=== PATIENT | male | born 1960 | race Hispanic/Latino ===

== ENCOUNTER 2020-02-29 17:54 | Emergency (ER) | payer SELFPAY ==
[~2020-02-29 17:54] MED LIST: Iopamidol-370 76% 500 ML 1 ML ONE
--- NOTE | 2020-02-29 18:07 | CT ---
CT Brain WO Con: 02/29/2020 12:00 AM CLINICAL HISTORY: Level 1 stroke; slurred speech with left-sided weakness. IMAGING TECHNIQUE: Multiple CT images were obtained of the brain without IV contrast. COMPARISON: None. FINDINGS: BRAIN: Evidence of infarct: None. Evidence of cranial hemorrhage: None. Evidence of midline shift: Third ventricle and septum pellucidum are midline. Ventricles: Normal. No hydrocephalus. SKULL: There is a defect involving the left medial orbital wall which may be related to congenital d ehiscence or remote trauma VISUALIZED PARANASAL SINUSES: Clear. MASTOID AIR CELLS: Clear. EXTRACRANIAL SOFT TISSUES: Normal. IMPRESSION: No acute intracranial abnormality. Findings were called to Dr. Pollock at 6:05 PM on 02/29/2020.
[2020-02-29 18:24] LABS: #Basophils 0.1 thou/uL (0.0-0.2); #Eosinphils 0.1 thou/uL (0.0-0.7); #Lymphocytes 1.6 thou/uL (1.20-3.40); #Monocytes 0.6 thou/uL (0.11-0.59); #Neutrophils 4.3 thou/uL (1.40-6.50); %Basophils 0.9 % (0.0-1.0); %Eosinophils 1.2 % (0.0-10.0); %Lymphocytes 24.2 % (21.0-51.0); %Monocytes 8.6 % (0.0-10.0); %Neutrophils 65.2 % (42.0-75.0); Mean Corpuscular HGB CONC 30.3 g/dL (32.0-36.0); Mean Corpuscular Hemoglobin 21.2 pg (27.0-31.0); Mean Platelet Volume 6.1 fL (7.4-10.4); Platelet Count 96 thou/uL (130-400); RBC Distribution Width 16.8 % (11.5-14.5); Red Blood Cell (RBC) Count 4.26 mill/uL (4.70-6.10); White Blood Cell (WBC) Count 6.5 thou/uL (4.8-10.8)
[2020-02-29 18:25] LABS: PTT 29.6 sec (22.9-36.1); Prothrombin Time 15.4 sec (12.0-14.7)
[2020-02-29 18:27] LABS: INR-International Normal Ratio 1.2
[2020-02-29 18:33] LABS: ALT (SGPT) 18 U/L (8-55); AST (SGOT) 31 U/L (5-34); Alkaline Phosphatase 167 U/L (40-110); Anion Gap 14 mmol/L (10-20); BUN (Urea Nitrogen) 8 mg/dL (8.4-25.7); Bilirubin, Total 1.1 mg/dL (0.2-1.2); CK (CPK) 194 U/L (30-200); Calc. Creatinine Clearance 0 mL/min (70-130); Calcium 8.6 mg/dL (7.8-10.44); Carbon Dioxide 22 mmol/L (23-31); Chloride 106 mmol/L (98-107); Estimated GFR-MDRD 90; Globulin 4.1 g/dL (2.4-3.5); Glucose 119 mg/dL (80-115); Lipase 47 U/L (8-78); Protein, Total 8.1 g/dL (5.8-8.1); Sodium 139 mmol/L (136-145)
--- NOTE | 2020-02-29 18:33 | CT ---
EXAM: CT angiogram head and neck with IV contrast and 3-D reconstructions PROVIDED CLINICAL HISTORY: Patient unable to move right hand or arm. Slurred speech. Level 1 stroke. Stumbling. COMPARISON: None FINDINGS: Vascular calcifications are seen in the aortic arch. There is a common origin of the innominate arter y and left common carotid artery which are patent. The right subclavian artery is patent. A portion of the left subclavian artery is obscured due to dense contrast in venous structures. The bilateral common carotid arteries are patent. Vascular calcifications are seen at the carotid art fabian bifurcations greater on the left with mild degree of narrowing involving the origin of the left internal carotid artery, but the degree of narrowing is less than 50%. The right internal carotid art fabian is patent. The right middle cerebral artery is patent. There is an abrupt occlusion involving the distal M1 segm ent left middle cerebral artery with focal calcification seen in this region. This is thought to be related to an intraluminal calcification related to embolus/thrombus as opposed to a focal atheroscle rotic plaque. There is enhancement of vessels involving the more distal left MCA branches. The bilateral anterior cerebral arteries are patent. Anterior communicating artery is visualized and lopez nt. Codominant and patent bilateral vertebral arteries are present. The basilar artery and posterior cere bral arteries are patent. There is loss of viera-white differentiation involving the insula on the left suggesting left MCA dist ribution infarction. Mild groundglass densities are seen in the upper lung zones, but this exam is obtained in expiratory phase imaging and findings are likely attributable to volume loss. Calcification is are seen in each lobe of the thyroid gland. The bilateral parotid and submandibular glands have a normal CT appearance. Degenerative changes are seen in the cervical spine. There is fusion of the C5 and C6 vertebral charlene s likely on a congenital basis. No enlarged lymph nodes are seen. IMPRESSION: 1. Occlusion of the distal M1 segment left middle cerebral artery with dense calcification this regio n worrisome for calcified embolus. In addition, there is loss of viera-white differentiation involving the insula on the left suggesting left MCA distribution infarction. 2. Additional findings as described above. 3. Above findings discussed with Dr. Pollock in the emergency department on 02/29/2020 at 1823 hours.
[2020-02-29 18:36] LABS: Anisocytosis SLIGHT = 6-15 cells (100X) (0-5/hpf); Hypochromia SLIGHT = 6-15 cells (100X) (0-5/hpf); MDiff Complete? YES; Microcytosis SLIGHT = 6-15 cells (100X) (0-5/hpf); Platelet Morphology Comment Appears Decreased; Polychromasia SLIGHT = 2-3 cells (100X) (0-2/hpf)
[2020-02-29 18:38] LABS: Acetaminophen Less than 6.0 mcg/mL (10.0-30.0); Alcohol 29 mg/dL (Less than 10); Salicylate Less than 8.0 mg/dL (15.0-30.0)
[2020-02-29 18:43] LABS: Potassium 2.9 mmol/L (3.5-5.1)
--- NOTE | 2020-02-29 18:52 | RAD ---
Chest AP view INDICATION: Altered mental status COMPARISON: None FINDINGS: Lungs: There is bibasilar atelectasis. Cardiac silhouette: There is mild cardiomegaly Pulmonary vasculature: There is mild pulmonary vascular congestion. Pleural spaces: No pleural effusion or pneumothorax is demonstrated. Upper abdomen: No abnormality seen. Osseous structures: No acute osseous abnormality. Additional findings: None. IMPRESSION: Mild cardiomegaly and mild pulmonary vascular congestion. Bibasilar subsegmental atelectasis.
[2020-02-29] MEDS ORDERED: Rocuronium Bromide 10 MG/ML (10ML VIAL) ONE (19:10)
[2020-02-29] MEDS ORDERED: Propofol 1,000 MG/100 ML VIAL IV ONE (19:24)
--- NOTE | 2020-02-29 20:08 | RAD ---
EXAM: CHEST ONE VIEW HISTORY: Level 1 stroke. Unable to move right hand. Slurred speech. COMPARISON: 02/29/2020 FINDINGS: Endotracheal tube is noted in place with the tip overlying the T4 vertebral body and above the level of the tete. Nasogastric tube is noted in place which courses into the left upper quadrant, but the tip is not imaged. Cardiac silhouette and bronchovascular markings are accentuated by the shallow depth of inspiration and portable technique. Mild increased perihilar interstitial densities are seen likely attributable to the depth of inspiration. No consolidation or pleural fluid is seen. No o ther interval change. IMPRESSION: 1. Endotracheal tube and nasogastric tubes noted in place. 2. Prominence of the bronchovascular markings likely due to shallow depth of inspiration and portable technique.
[2020-02-29 21:26] LABS: Bilirubin Negative (Negative); Blood, Urine Negative (Negative); Clarity Clear (Clear); Glucose, Urine (Dipstick) Normal (Negative); Leukocyte Negative Leu/uL (Negative); Nitrite Negative (Negative); Protein, Urine (Dipstick) 20 mg/dL (Neg-Trace); Urobilinogen Normal mg/dL (Less than 2)
[2020-02-29 21:36] LABS: Amphetamine Not Detected (NotDetected); Barbiturates Screen Not Detected (NotDetected); Benzodiazepine Screen Not Detected (NotDetected); Cocaine Metabolite Screen Not Detected (NotDetected); Medtox Control Line Valid? VALID (VALID); Medtox Reader # READER 1; Methadone Not Detected (NotDetected); Methamphetamine Not Detected (NotDetected); Opiate Screen Not Detected (NotDetected); Oxycodone Screen Not Detected (NotDetected); Phencyclidine (PCP) Not Detected (NotDetected); THC/Cannabinoid Screen Not Detected (NotDetected); Tricyclic Screen Not Detected (NotDetected)
--- NOTE | 2020-03-04 13:07 | CT ---
EXAM: CT angiogram head and neck with IV contrast and 3-D reconstructions PROVIDED CLINICAL HISTORY: Patient unable to move right hand or arm. Slurred speech. Level 1 stroke. Stumbling. COMPARISON: None FINDINGS: Vascular calcifications are seen in the aortic arch. There is a common origin of the innominate arter y and left common carotid artery which are patent. The right subclavian artery is patent. A portion of the left subclavian artery is obscured due to dense contrast in venous structures. The bilateral common carotid arteries are patent. Vascular calcifications are seen at the carotid art fabian bifurcations greater on the left with mild degree of narrowing involving the origin of the left internal carotid artery, but the degree of narrowing is less than 50%. The right internal carotid art fabian is patent. The right middle cerebral artery is patent. There is an abrupt occlusion involving the distal M1 segm ent left middle cerebral artery with focal calcification seen in this region. This is thought to be related to an intraluminal calcification related to embolus/thrombus as opposed to a focal atheroscle rotic plaque. There is enhancement of vessels involving the more distal left MCA branches. The bilateral anterior cerebral arteries are patent. Anterior communicating artery is visualized and lopez nt. Codominant and patent bilateral vertebral arteries are present. The basilar artery and posterior cere bral arteries are patent. There is loss of viera-white differentiation involving the insula on the left suggesting left MCA dist ribution infarction. Mild groundglass densities are seen in the upper lung zones, but this exam is obtained in expiratory phase imaging and findings are likely attributable to volume loss. Calcification is are seen in each lobe of the thyroid gland. The bilateral parotid and submandibular glands have a normal CT appearance. Degenerative changes are seen in the cervical spine. There is fusion of the C5 and C6 vertebral charlene s likely on a congenital basis. No enlarged lymph nodes are seen. IMPRESSION: 1. Occlusion of the distal M1 segment left middle cerebral artery with dense calcification in this re gion worrisome for calcified embolus. In addition, there is loss of viera-white differentiation involving the insula on the left suggesting left MCA distribution infarction. 2. Additional findings as described above. 3. Above findings discussed with Dr. Pollock in the emergency department on 02/29/2020 at 1823 hours. Transcribed Date/Time: 03/04/2020 1:07 PM
--- NOTE | 2020-03-05 14:52 | EKG ---
Test Reason : STROKE ALERT Blood Pressure : / mmHG Vent. Rate : 090 BPM Atrial Rate : 090 BPM P-R Int : 136 ms QRS Dur : 104 ms QT Int : 402 ms P-R-T Axes : 040 029 012 degrees QTc Int : 491 ms Normal sinus rhythm Prolonged QT Abnormal ECG Confirmed by SAUNDRA FITZGERALD, ERIC ([id number]), scientific publications editor OANH ARCEO ([id number]) on 03/05/2020 2:51:34 PM Referred By: SAUNDRA Confirmed By:ERIC ARGUELLO MD
== END 2020-02-29 20:03 | disposition short-term general hospital (02) ==
LOC: EDBD 17:54 → ERS 17:54
DX: I66.02 Occlusion and stenosis of left middle cerebral artery (principal)
CPT/HCPCS: 31500; 36415; 36416; 51701; 70450; 70496; 70498; 71045; 80053; 80306; 80307; 82140; 82550; 82553; 83690; 83880; 84443; 84484; 85025; 85610; 85730; 86850; 86900; 86901; 93005; 96365; 96375; J2704; J2997; Q9967

== ENCOUNTER 2021-03-10 22:03 | Observation (INO) | payer SELFPAY ==
[2021-03-10] MEDS ORDERED: Lorazepam 2 MG/ML VIAL ONE ×2 (22:15)
[2021-03-10] MEDS ORDERED: levETIRAcetam 500 MG/100 ML PREMIX BAG ONE (22:19)
[2021-03-10] MEDS ORDERED: levETIRAcetam in NS 100 ML ONE (22:19)
[2021-03-10 23:17] LABS: #Eosinphils 0.1 thou/uL (0.0-0.7); #Lymphocytes 1.7 thou/uL (1.20-3.40); #Monocytes 0.6 thou/uL (0.11-0.59); #Neutrophils 7.3 thou/uL (1.40-6.50); %Basophils 0.2 % (0.0-1.0); %Eosinophils 1.2 % (0.0-10.0); %Lymphocytes 17.2 % (21.0-51.0); %Monocytes 6.2 % (0.0-10.0); %Neutrophils 75.3 % (42.0-75.0); Hemoglobin 10.6 g/dL (14.0-18.0); Mean Corpuscular HGB CONC 34.9 g/dL (32.0-36.0); Mean Corpuscular Hemoglobin 32.5 pg (27.0-31.0); Mean Corpuscular Volume 93.1 fL (78.0-98.0); Platelet Count 91 thou/uL (130-400); RBC Distribution Width 12.9 % (11.5-14.5); Red Blood Cell (RBC) Count 3.27 mill/uL (4.70-6.10); White Blood Cell (WBC) Count 9.6 thou/uL (4.8-10.8)
[2021-03-10 23:34] LABS: ALT (SGPT) 20 U/L (8-55); AST (SGOT) 15 U/L (5-34); Albumin 3.3 g/dL (3.4-4.8); Alkaline Phosphatase 158 U/L (40-110); Anion Gap 19 mmol/L (10-20); BUN (Urea Nitrogen) 11 mg/dL (8.4-25.7); Bilirubin, Total 1.3 mg/dL (0.2-1.2); Calc. Creatinine Clearance 0 mL/min (70-130); Calcium 8.3 mg/dL (7.8-10.44); Carbon Dioxide 14 mmol/L (23-31); Chloride 110 mmol/L (98-107); Globulin 3.1 g/dL (2.4-3.5); Glucose 148 mg/dL (80-115); Potassium 3.4 mmol/L (3.5-5.1); Protein, Total 6.4 g/dL (5.8-8.1); Sodium 140 mmol/L (136-145)
[2021-03-11] MEDS ORDERED: Acetaminophen 325 MG TAB PO PRN (02:30)
[2021-03-11] MEDS ORDERED: Potassium Chloride 20 MEQ TAB PO SCH (02:30)
[2021-03-11] MEDS ORDERED: Ondansetron ODT 4 MG TAB PO PRN (02:33)
[2021-03-11] MEDS ORDERED: Ondansetron PF 4 MG/2 ML Vial IVP PRN (02:33)
[2021-03-11] MEDS ORDERED: Lorazepam 2 MG/ML VIAL SLOW IVP PRN (02:39)
[2021-03-11] MEDS: Lactated Ringer's 1,000 ML IV SCH ×2 (04:10→10:53)
[2021-03-11 06:54] LABS: #Eosinphils 0.1 thou/uL (0.0-0.7); #Lymphocytes 1.8 thou/uL (1.20-3.40); #Monocytes 0.4 thou/uL (0.11-0.59); %Basophils 0.7 % (0.0-1.0); %Eosinophils 0.9 % (0.0-10.0); %Lymphocytes 27.9 % (21.0-51.0); %Monocytes 6.4 % (0.0-10.0); Hemoglobin 10.3 g/dL (14.0-18.0); Mean Corpuscular HGB CONC 33.8 g/dL (32.0-36.0); Mean Corpuscular Hemoglobin 31.1 pg (27.0-31.0); Mean Corpuscular Volume 92.1 fL (78.0-98.0); Mean Platelet Volume 9.2 fL (7.4-10.4); Platelet Count 72 thou/uL (130-400); RBC Distribution Width 12.9 % (11.5-14.5); Red Blood Cell (RBC) Count 3.31 mill/uL (4.70-6.10); White Blood Cell (WBC) Count 6.3 thou/uL (4.8-10.8)
[2021-03-11 07:14] LABS: Anion Gap 10 mmol/L (10-20); BUN (Urea Nitrogen) 7 mg/dL (8.4-25.7); Calc. Creatinine Clearance 125 mL/min (70-130); Calcium 8.2 mg/dL (7.8-10.44); Carbon Dioxide 22 mmol/L (23-31); Chloride 112 mmol/L (98-107); Glucose 91 mg/dL (80-115); Potassium 3.4 mmol/L (3.5-5.1); Sodium 141 mmol/L (136-145)
[2021-03-11] MEDS: Enoxaparin Sodium 40 MG/0.4 ML SYRINGE SC SCH (09:51)
[2021-03-11] MEDS: levETIRAcetam in NS 1,000 MG in Premix Bag 1 BAG IVPB SCH ×2 (09:51→23:10)
[2021-03-11] MEDS ORDERED: hydrALAZINE 10 MG TAB PO SCH (18:00)
[2021-03-11] MEDS ORDERED: Atorvastatin Calcium 40 MG TAB PO SCH (21:00)
[2021-03-12 08:35] VITALS: BP 127/62; TEMP 98.1
[2021-03-12] MEDS: levETIRAcetam in NS 1,000 MG in Premix Bag 1 BAG IVPB SCH (08:47)
[2021-03-12] MEDS ORDERED: Amlodipine 10 MG TAB PO SCH (09:00)
[2021-03-12] MEDS ORDERED: Lisinopril 20 MG TAB PO SCH (09:00)
[2021-03-12] MEDS ORDERED: Aspirin 325 mg Enteric Coated Tablet PO SCH (09:00)
[2021-03-12] MEDS: Enoxaparin Sodium 40 MG/0.4 ML SYRINGE SC SCH (09:55)
== END 2021-03-12 14:12 | disposition home or self-care (01) ==
LOC: ERS 22:03 → ERHOLD 03-11 00:51 → 2NO 03-11 02:33
PROVIDERS: ADMIT Student in an Organized Health Care Education/Training Program; ATTEND Internal Medicine
DX: G40.909 Epilepsy, unspecified, not intractable, without status epilepticus (principal); D64.9 Anemia, unspecified; E87.6 Hypokalemia; M79.89 Other specified soft tissue disorders; I69.351 Hemiplegia and hemiparesis following cerebral infarction affecting right dominant side; E78.5 Hyperlipidemia, unspecified; I10 Essential (primary) hypertension; S09.8XXA Other specified injuries of head, initial encounter; Z79.82 Long term (current) use of aspirin; Z79.899 Other long term (current) drug therapy; X58.XXXA Exposure to other specified factors, initial encounter
CPT/HCPCS: 36415; 70450; 80048; 80053; 85025; 93005; 96365; 96366; 96372; 96375; 96376; G0378; J1650; J1953; J2060

== ENCOUNTER 2021-03-30 13:14 | Inpatient (IN) | payer OTHER, SELFPAY ==
[~2021-03-30 13:14] MED LIST changes: +Heparin 1,000 UNITS/ML VIAL ONE; -Iopamidol-370 76% 500 ML 1 ML ONE
[2021-03-30] MEDS ORDERED: Succinylcholine 200 MG/10 ml SYRINGE FS ONE (13:56)
[2021-03-30] MEDS ORDERED: PHENYLEPHRINE-NS 100 MCG/ML 10 ML SYRINGE ONE ×2 (13:56→22:35)
[2021-03-30] MEDS ORDERED: Rocuronium Bromide 10 MG/ML (10ML VIAL) ONE ×2 (13:56→22:35)
[2021-03-30 14:55] LABS: #Eosinphils 0.1 thou/uL (0.0-0.7); #Lymphocytes 1.5 thou/uL (1.20-3.40); #Monocytes 0.5 thou/uL (0.11-0.59); #Neutrophils 5.1 thou/uL (1.40-6.50); %Basophils 0.4 % (0.0-1.0); %Eosinophils 1.4 % (0.0-10.0); %Monocytes 6.4 % (0.0-10.0); %Neutrophils 70.9 % (42.0-75.0); Hemoglobin 12.7 g/dL (14.0-18.0); Mean Corpuscular HGB CONC 34.7 g/dL (32.0-36.0); Mean Corpuscular Hemoglobin 31.5 pg (27.0-31.0); Mean Corpuscular Volume 90.9 fL (78.0-98.0); Mean Platelet Volume 10.4 fL (7.4-10.4); Platelet Count 104 thou/uL (130-400); RBC Distribution Width 12.6 % (11.5-14.5); Red Blood Cell (RBC) Count 4.03 mill/uL (4.70-6.10); White Blood Cell (WBC) Count 7.2 thou/uL (4.8-10.8)
[2021-03-30 15:08] LABS: Anion Gap 14 mmol/L (10-20); BUN (Urea Nitrogen) 10 mg/dL (8.4-25.7); Calc. Creatinine Clearance 0 mL/min (70-130); Carbon Dioxide 23 mmol/L (23-31); Chloride 107 mmol/L (98-107); Potassium 3.5 mmol/L (3.5-5.1); Sodium 140 mmol/L (136-145)
[2021-03-30 15:09] LABS: INR-International Normal Ratio 1.2; PTT 32.9 sec (22.9-36.1); Prothrombin Time 14.9 sec (12.0-14.7)
[2021-03-30 15:09] LABS: ALT (SGPT) 26 U/L (8-55); AST (SGOT) 23 U/L (5-34); Albumin 3.7 g/dL (3.4-4.8); Alkaline Phosphatase 162 U/L (40-110); Bilirubin, Total 1.7 mg/dL (0.2-1.2); Calcium 9.1 mg/dL (7.8-10.44); Globulin 3.5 g/dL (2.4-3.5); Glucose 100 mg/dL (80-115); Lipase 31 U/L (8-78); Protein, Total 7.2 g/dL (5.8-8.1)
[2021-03-30] MEDS ORDERED: Benzocaine 20% Spray 60 ML CAN ONE (15:15)
[2021-03-30] MEDS ORDERED: Oxymetazoline HCl 0.05% (30 ML BOT) ONE (15:15)
[2021-03-30] MEDS ORDERED: Ketamine 50 MG/ML (10ML VIAL) ONE (16:20)
[2021-03-30] MEDS ORDERED: Lidocaine 1% w/Epinephrine 1:100K 20 ML VIAL ONE (16:22)
[2021-03-30] MEDS ORDERED: Dexamethasone 4 mg/ml Vial ONE (16:24)
[2021-03-30] MEDS ORDERED: Lidocaine 4% PF 5 ML AMP NEB SCH (16:45)
[2021-03-30] MEDS ORDERED: EPINEPHrine 1 MG/ML AMP ONE ×2 (16:49)
[2021-03-30] MEDS ORDERED: Ferric Subsulfate (ASTRINGYN) 8 GM VIAL ONE (17:51)
[2021-03-30] MEDS ORDERED: Midazolam HCl 2 mg/2 ml Vial ONE (18:28)
[2021-03-30] MEDS ORDERED: Ondansetron PF 4 MG/2 ML Vial IVP PRN (19:27)
[2021-03-30] MEDS ORDERED: Propofol BOLUS 1,000 MG/100 ML VIAL IV PRN (19:30)
[2021-03-30] MEDS ORDERED: Fentanyl BOLUS 250 ML IVPB PRN (19:30)
[2021-03-30] MEDS ORDERED: Morphine 2 MG/ML VIAL SLOW IVP PRN (19:30)
[2021-03-30] MEDS ORDERED: Propofol 1,000 MG/100 ML VIAL IV PRN (19:30)
[2021-03-30] MEDS ORDERED: DISCONTINUE PREVIOUS NARCOTIC PAIN MEDICATIONS AND BENZODIAZEPINES FS SCH (19:30)
[2021-03-30] MEDS ORDERED: Labetalol HCl 100 MG/20 ML VIAL SLOW IVP PRN (19:33)
[2021-03-30] MEDS: Dexamethasone 4 mg/ml Vial SLOW IVP SCH (19:45)
[2021-03-30 19:51] LABS: Actual Bicarbonate (HCO3a) 22.4 mEq/L (22-28); Base Excess (BEa) 0.6 mEq/L (-2.0 to +3.0); Calcium, Ionized (arterial) 1.09 mmol/L (1.12-1.30); Carboxyhemoglobin (COHb) 0.3 gm% (0.0-3.0); Hemoglobin (Hb) 10.2 g/dL (14.0-18.0); O2 Tension (PaO2), arterial 80.1 mmHg (> 80.0); Potassium - ABG Lab 3.36 mmol/L (3.70-5.30); pH, Arterial 7.54 (7.35-7.45)
[2021-03-30 19:52] LABS: Puncture Site RBA
[2021-03-30 19:57] LABS: #Lymphocytes 1.2 thou/uL (1.20-3.40); #Monocytes 0.2 thou/uL (0.11-0.59); #Neutrophils 11.7 thou/uL (1.40-6.50); %Basophils 0.2 % (0.0-1.0); %Eosinophils 0.2 % (0.0-10.0); %Lymphocytes 9.2 % (21.0-51.0); %Monocytes 1.4 % (0.0-10.0); Hemoglobin 9.3 g/dL (14.0-18.0); Mean Corpuscular HGB CONC 35.1 g/dL (32.0-36.0); Mean Corpuscular Volume 91.1 fL (78.0-98.0); Mean Platelet Volume 10.3 fL (7.4-10.4); Platelet Count 85 thou/uL (130-400); RBC Distribution Width 12.6 % (11.5-14.5); Red Blood Cell (RBC) Count 2.89 mill/uL (4.70-6.10); White Blood Cell (WBC) Count 13.1 thou/uL (4.8-10.8)
[2021-03-30] MEDS ORDERED: Fentanyl CADD 100 ML ONE (21:37)
[2021-03-30] MEDS: Fentanyl CADD 100 ML IV SCH (21:42)
[2021-03-30] MEDS: levETIRAcetam in NS 1,500 MG in Premix Bag 1 BAG IVPB SCH (21:44)
[2021-03-30] MEDS ORDERED: Sodium Chloride 0.9% 500 ML IV SCH (21:45)
[2021-03-30] MEDS: Lorazepam 2 MG/ML VIAL SLOW IVP PRN (21:57)
[2021-03-30 21:58] LABS: SARS-CoV-2 NAA Rapid Test Not Detected (NotDetected)
[2021-03-30] MEDS: Sodium Chloride 0.9% 1,000 ML IV SCH (21:58)
[2021-03-30] MEDS ORDERED: Heparin 0 ML ONE (22:18)
[2021-03-30] MEDS ORDERED: Lidocaine 1% (PF) 30 ML VIAL ONE (22:18)
[2021-03-30] MEDS ORDERED: Ondansetron PF 4 MG/2 ML Vial ONE (22:35)
[2021-03-31] MEDS ORDERED: Phenylephrine 0.25% Nasal Spray 15 ML BOT ONE ×2 (00:52→00:55)
[2021-03-31] MEDS: Phenylephrine 40 MG/NS 250 ML 40 MG in Premix Bag 1 BAG IVPB SCH ×2 (01:29→13:57)
[2021-03-31] MEDS: Sodium Chloride 0.9% 1,000 ML IV SCH ×3 (01:30→20:54)
[2021-03-31 01:42] LABS: #Basophils 0.2 thou/uL (0.0-0.2); #Lymphocytes 0.6 thou/uL (1.20-3.40); #Neutrophils 7.5 thou/uL (1.40-6.50); %Basophils 2.9 % (0.0-1.0); %Eosinophils 0.1 % (0.0-10.0); %Lymphocytes 6.7 % (21.0-51.0); %Monocytes 0.4 % (0.0-10.0); %Neutrophils 89.9 % (42.0-75.0); Hemoglobin 11.7 g/dL (14.0-18.0); Mean Corpuscular HGB CONC 34.9 g/dL (32.0-36.0); Mean Corpuscular Hemoglobin 30.6 pg (27.0-31.0); Mean Corpuscular Volume 87.8 fL (78.0-98.0); Mean Platelet Volume 10.7 fL (7.4-10.4); Platelet Count 64 thou/uL (130-400); RBC Distribution Width 15.5 % (11.5-14.5); Red Blood Cell (RBC) Count 3.81 mill/uL (4.70-6.10); White Blood Cell (WBC) Count 8.3 thou/uL (4.8-10.8)
[2021-03-31] MEDS: Dexamethasone 4 mg/ml Vial SLOW IVP SCH ×4 (02:22→20:54)
[2021-03-31 04:30] LABS: INR-International Normal Ratio 1.3; PTT 29.6 sec (22.9-36.1); Prothrombin Time 16.3 sec (12.0-14.7)
[2021-03-31 04:41] LABS: #Basophils 0.2 thou/uL (0.0-0.2); #Lymphocytes 0.8 thou/uL (1.20-3.40); #Monocytes 0.1 thou/uL (0.11-0.59); #Neutrophils 15.4 thou/uL (1.40-6.50); %Monocytes 0.7 % (0.0-10.0); %Neutrophils 93.3 % (42.0-75.0); Burr Cells SLIGHT = 2-5 cells (100X) (0-1/hpf); Hemoglobin 12.9 g/dL (14.0-18.0); Large Platelets SLIGHT; MDiff Complete? YES; Mean Corpuscular Hemoglobin 29.9 pg (27.0-31.0); Mean Corpuscular Volume 87.7 fL (78.0-98.0); Mean Platelet Volume 11.4 fL (7.4-10.4); Platelet Count 97 thou/uL (130-400); Platelet Morphology Comment Appears Decreased; RBC Distribution Width 15.8 % (11.5-14.5); Red Blood Cell (RBC) Count 4.32 mill/uL (4.70-6.10); White Blood Cell (WBC) Count 16.5 thou/uL (4.8-10.8)
[2021-03-31 05:44] LABS: ALT (SGPT) 18 U/L (8-55); AST (SGOT) 19 U/L (5-34); Albumin 2.8 g/dL (3.4-4.8); Alkaline Phosphatase 103 U/L (40-110); Anion Gap 12 mmol/L (10-20); BUN (Urea Nitrogen) 11 mg/dL (8.4-25.7); Bilirubin, Total 3.7 mg/dL (0.2-1.2); Calc. Creatinine Clearance 118 mL/min (70-130); Calcium 7.5 mg/dL (7.8-10.44); Carbon Dioxide 19 mmol/L (23-31); Chloride 112 mmol/L (98-107); Globulin 2.3 g/dL (2.4-3.5); Glucose 181 mg/dL (80-115); Potassium 3.5 mmol/L (3.5-5.1); Protein, Total 5.1 g/dL (5.8-8.1); Sodium 139 mmol/L (136-145)
[2021-03-31 07:12] LABS: Actual Bicarbonate (HCO3a) 18.1 mEq/L (22-28); Base Excess (BEa) -7.2 mEq/L (-2.0 to +3.0); CO2 Tension 35.9 mmHg (35.0-45.0); Carboxyhemoglobin (COHb) 0.7 gm% (0.0-3.0); Hemoglobin (Hb) 12.8 g/dL (14.0-18.0); Potassium - ABG Lab 3.56 mmol/L (3.70-5.30); pH, Arterial 7.32 (7.35-7.45)
[2021-03-31 07:30] LABS: ALV-art Gradient 105.625 mmHg (0-20); Puncture Site Arterial Line
[2021-03-31] MEDS: Pantoprazole 40 MG VIAL IVP SCH (08:24)
[2021-03-31] MEDS: levETIRAcetam in NS 1,500 MG in Premix Bag 1 BAG IVPB SCH ×2 (08:32→22:35)
[2021-03-31] MEDS ORDERED: Sodium Chloride 0.9% 1,000 ML IV SCH (16:15)
[2021-03-31] MEDS ORDERED: Fentanyl CADD 100 ML ONE (20:17)
[2021-03-31] MEDS: Fentanyl CADD 100 ML IV SCH (20:45)
[2021-04-01] MEDS: Dexamethasone 4 mg/ml Vial SLOW IVP SCH ×4 (02:10→20:41)
[2021-04-01] MEDS: Sodium Chloride 0.9% 1,000 ML IV SCH ×3 (05:05→20:49)
[2021-04-01] MEDS: Pantoprazole 40 MG VIAL IVP SCH (08:04)
[2021-04-01] MEDS: levETIRAcetam in NS 1,500 MG in Premix Bag 1 BAG IVPB SCH ×2 (08:04→20:41)
[2021-04-01] MEDS: Lorazepam 2 MG/ML VIAL SLOW IVP PRN (10:00)
[2021-04-01] MEDS ORDERED: Fentanyl CADD 100 ML ONE (13:17)
[2021-04-01] MEDS: Fentanyl CADD 100 ML IV SCH (13:22)
[2021-04-01 23:54] LABS: #Lymphocytes 0.7 thou/uL (1.20-3.40); #Monocytes 0.2 thou/uL (0.11-0.59); #Neutrophils 11.8 thou/uL (1.40-6.50); %Eosinophils 0.1 % (0.0-10.0); %Lymphocytes 5.1 % (21.0-51.0); %Monocytes 1.5 % (0.0-10.0); %Neutrophils 93.3 % (42.0-75.0); Mean Corpuscular HGB CONC 33.9 g/dL (32.0-36.0); Mean Corpuscular Hemoglobin 30.3 pg (27.0-31.0); Mean Corpuscular Volume 89.4 fL (78.0-98.0); Mean Platelet Volume 10.4 fL (7.4-10.4); Platelet Count 72 thou/uL (130-400); RBC Distribution Width 16.5 % (11.5-14.5); Red Blood Cell (RBC) Count 3.31 mill/uL (4.70-6.10); White Blood Cell (WBC) Count 12.6 thou/uL (4.8-10.8)
[2021-04-02] MEDS: Dexamethasone 4 mg/ml Vial SLOW IVP SCH ×3 (01:59→13:16)
[2021-04-02] MEDS ORDERED: Fentanyl CADD 100 ML ONE ×2 (02:43→14:15)
[2021-04-02] MEDS: Fentanyl CADD 100 ML IV SCH ×2 (02:49→14:15)
[2021-04-02 04:36] LABS: #Basophils 0.1 thou/uL (0.0-0.2); #Lymphocytes 0.6 thou/uL (1.20-3.40); #Monocytes 0.3 thou/uL (0.11-0.59); #Neutrophils 8.7 thou/uL (1.40-6.50); %Basophils 0.5 % (0.0-1.0); %Eosinophils 0.1 % (0.0-10.0); %Lymphocytes 5.7 % (21.0-51.0); %Monocytes 3.1 % (0.0-10.0); %Neutrophils 90.6 % (42.0-75.0); Hemoglobin 9.6 g/dL (14.0-18.0); Mean Corpuscular HGB CONC 34.3 g/dL (32.0-36.0); Mean Corpuscular Hemoglobin 30.5 pg (27.0-31.0); Mean Corpuscular Volume 88.9 fL (78.0-98.0); Mean Platelet Volume 11.3 fL (7.4-10.4); Platelet Count 64 thou/uL (130-400); RBC Distribution Width 16.4 % (11.5-14.5); Red Blood Cell (RBC) Count 3.14 mill/uL (4.70-6.10); White Blood Cell (WBC) Count 9.6 thou/uL (4.8-10.8)
[2021-04-02 04:47] LABS: Anion Gap 7 mmol/L (10-20); BUN (Urea Nitrogen) 13 mg/dL (8.4-25.7); Calc. Creatinine Clearance 142 mL/min (70-130); Calcium 7.4 mg/dL (7.8-10.44); Carbon Dioxide 23 mmol/L (23-31); Chloride 116 mmol/L (98-107); Glucose 153 mg/dL (80-115); Magnesium 1.7 mg/dL (1.6-2.6); Phosphorus 2.4 mg/dL (2.3-4.7); Potassium 3.6 mmol/L (3.5-5.1); Sodium 142 mmol/L (136-145)
[2021-04-02] MEDS: Sodium Chloride 0.9% 1,000 ML IV SCH ×3 (06:49→20:02)
[2021-04-02] MEDS: Lorazepam 2 MG/ML VIAL SLOW IVP PRN ×3 (08:52→14:16)
[2021-04-02] MEDS: Pantoprazole 40 MG VIAL IVP SCH (08:56)
[2021-04-02] MEDS: levETIRAcetam in NS 1,500 MG in Premix Bag 1 BAG IVPB SCH ×2 (08:56→20:02)
[2021-04-02] MEDS ORDERED: methylPREDNISolone Sod Succ/PF 125 MG/2 ML VIAL IVP SCH (16:15)
[2021-04-03] MEDS: Sodium Chloride 0.9% 1,000 ML IV SCH ×2 (05:18→10:59)
[2021-04-03] MEDS: Pantoprazole 40 MG VIAL IVP SCH (07:20)
[2021-04-03] MEDS: methylPREDNISolone Sod Succ/PF 125 MG/2 ML VIAL IVP SCH (07:20)
[2021-04-03] MEDS: levETIRAcetam in NS 1,500 MG in Premix Bag 1 BAG IVPB SCH ×2 (07:21→20:52)
[2021-04-03] MEDS ORDERED: Electrolyte Replacement Protocol 1 EACH FS PRN (08:45)
[2021-04-03] MEDS ORDERED: Magnesium 2 GM/50 ML 2 GM in Premix Bag 1 BAG IVPB SCH (09:00)
[2021-04-03 09:24] LABS: #Lymphocytes 0.3 thou/uL (1.20-3.40); #Monocytes 0.3 thou/uL (0.11-0.59); #Neutrophils 4.7 thou/uL (1.40-6.50); %Basophils 0.9 % (0.0-1.0); %Lymphocytes 6.4 % (21.0-51.0); %Monocytes 4.8 % (0.0-10.0); %Neutrophils 87.8 % (42.0-75.0); Hemoglobin 10.2 g/dL (14.0-18.0); Mean Corpuscular HGB CONC 34.5 g/dL (32.0-36.0); Mean Corpuscular Hemoglobin 30.4 pg (27.0-31.0); Mean Platelet Volume 11.1 fL (7.4-10.4); Platelet Count 57 thou/uL (130-400); RBC Distribution Width 16.2 % (11.5-14.5); Red Blood Cell (RBC) Count 3.37 mill/uL (4.70-6.10); White Blood Cell (WBC) Count 5.4 thou/uL (4.8-10.8)
[2021-04-03 09:31] LABS: ALT (SGPT) 20 U/L (8-55); AST (SGOT) 14 U/L (5-34); Albumin 2.6 g/dL (3.4-4.8); Alkaline Phosphatase 79 U/L (40-110); Anion Gap 9 mmol/L (10-20); BUN (Urea Nitrogen) 14 mg/dL (8.4-25.7); Bilirubin, Total 2.1 mg/dL (0.2-1.2); Calc. Creatinine Clearance 176 mL/min (70-130); Calcium 7.3 mg/dL (7.8-10.44); Carbon Dioxide 22 mmol/L (23-31); Chloride 115 mmol/L (98-107); Globulin 2.2 g/dL (2.4-3.5); Glucose 161 mg/dL (80-115); Potassium 3.4 mmol/L (3.5-5.1); Protein, Total 4.8 g/dL (5.8-8.1); Sodium 143 mmol/L (136-145)
[2021-04-03] MEDS: CEFEPIME HCL IN DEXTROSE 5 % 1 GM in Premix Bag 1 BAG IVPB SCH ×2 (09:40→20:52)
[2021-04-03] MEDS: Potassium Chloride 20 MEQ in Premix Bag 1 BAG IVPB SCH ×2 (10:58→12:53)
[2021-04-03] MEDS ORDERED: Lidocaine 1% w/Epinephrine 1:100K 20 ML VIAL ONE (12:53)
[2021-04-03] MEDS ORDERED: Fentanyl CADD 100 ML ONE (12:56)
[2021-04-03] MEDS: Fentanyl CADD 100 ML IV SCH (12:57)
[2021-04-03] MEDS ORDERED: PHENYLEPHRINE-NS 100 MCG/ML 10 ML SYRINGE ONE (13:50)
[2021-04-03] MEDS ORDERED: PROPOFOL 200 MG/20 ML VIAL ONE (13:50)
[2021-04-03] MEDS ORDERED: Ondansetron PF 4 MG/2 ML Vial ONE (13:50)
[2021-04-03] MEDS ORDERED: Lidocaine 1% PF 5 ML VIAL ONE (13:50)
[2021-04-04] MEDS: Sodium Chloride 0.9% 1,000 ML IV SCH ×2 (02:30→13:38)
[2021-04-04] MEDS: Pantoprazole 40 MG VIAL IVP SCH (08:12)
[2021-04-04] MEDS: methylPREDNISolone Sod Succ/PF 125 MG/2 ML VIAL IVP SCH (08:12)
[2021-04-04] MEDS: levETIRAcetam in NS 1,500 MG in Premix Bag 1 BAG IVPB SCH ×2 (08:12→21:11)
[2021-04-04 08:29] LABS: #Lymphocytes 0.6 thou/uL (1.20-3.40); #Monocytes 0.4 thou/uL (0.11-0.59); #Neutrophils 8.4 thou/uL (1.40-6.50); %Basophils 0.1 % (0.0-1.0); %Eosinophils 0.1 % (0.0-10.0); %Lymphocytes 6.3 % (21.0-51.0); %Monocytes 4.4 % (0.0-10.0); %Neutrophils 89.1 % (42.0-75.0); Hemoglobin 10.8 g/dL (14.0-18.0); Mean Corpuscular HGB CONC 32.9 g/dL (32.0-36.0); Mean Platelet Volume 11.2 fL (7.4-10.4); Platelet Count 66 thou/uL (130-400); RBC Distribution Width 16.1 % (11.5-14.5); Red Blood Cell (RBC) Count 3.71 mill/uL (4.70-6.10); White Blood Cell (WBC) Count 9.4 thou/uL (4.8-10.8)
[2021-04-04] MEDS ORDERED: DC Sedation Protocol FS SCH (08:34)
[2021-04-04 08:46] LABS: Anion Gap 11 mmol/L (10-20); BUN (Urea Nitrogen) 10 mg/dL (8.4-25.7); Calc. Creatinine Clearance 155 mL/min (70-130); Calcium 7.7 mg/dL (7.8-10.44); Carbon Dioxide 23 mmol/L (23-31); Chloride 112 mmol/L (98-107); Glucose 139 mg/dL (80-115); Magnesium 2.1 mg/dL (1.6-2.6); Sodium 143 mmol/L (136-145)
[2021-04-04 08:59] LABS: Phosphorus 1.5 mg/dL (2.3-4.7)
[2021-04-04] MEDS ORDERED: Dexamethasone 4 MG in Sodium Chloride 0.9% 50 ML IVPB SCH (09:00)
[2021-04-04] MEDS: CEFEPIME HCL IN DEXTROSE 5 % 1 GM in Premix Bag 1 BAG IVPB SCH ×2 (09:01→21:11)
[2021-04-04] MEDS: Dexamethasone 4 mg/ml Vial SLOW IVP SCH (09:51)
[2021-04-04] MEDS ORDERED: Potassium Phosphate 22 MMOL in Sodium Chloride 0.9% 250 ML 250 ML IVPB SCH (10:00)
[2021-04-04] MEDS ORDERED: Potassium Chloride 10 MEQ in Premix Bag 1 BAG IVPB SCH (10:00)
[2021-04-04] MEDS ORDERED: Electrolyte Replacement Protocol 1 EACH FS SCH (10:00)
[2021-04-04] MEDS: Morphine 4 MG/ML VIAL SLOW IVP PRN ×3 (11:09→23:37)
[2021-04-04] MEDS: Haloperidol Lactate 5 MG/ML VIAL SLOW IVP SCH ×3 (11:59→23:37)
[2021-04-04] MEDS: D5 1/2 NS w/20 mEq KCL 1,000 ML IV SCH (22:08)
[2021-04-05] MEDS: Haloperidol Lactate 5 MG/ML VIAL SLOW IVP SCH ×4 (05:07→23:49)
[2021-04-05 06:25] LABS: ALT (SGPT) 30 U/L (8-55); AST (SGOT) 35 U/L (5-34); Albumin 2.8 g/dL (3.4-4.8); Alkaline Phosphatase 97 U/L (40-110); Anion Gap 8 mmol/L (10-20); BUN (Urea Nitrogen) 7 mg/dL (8.4-25.7); Bilirubin, Total 3.4 mg/dL (0.2-1.2); Calc. Creatinine Clearance 140 mL/min (70-130); Calcium 7.6 mg/dL (7.8-10.44); Carbon Dioxide 29 mmol/L (23-31); Chloride 108 mmol/L (98-107); Globulin 2.5 g/dL (2.4-3.5); Glucose 168 mg/dL (80-115); Magnesium 2.1 mg/dL (1.6-2.6); Potassium 3.1 mmol/L (3.5-5.1); Protein, Total 5.3 g/dL (5.8-8.1); Sodium 142 mmol/L (136-145)
[2021-04-05] MEDS: Potassium Chloride 20 MEQ in Premix Bag 1 BAG IVPB SCH ×2 (06:45→09:40)
[2021-04-05 06:58] LABS: INR-International Normal Ratio 1.2; Prothrombin Time 15.6 sec (12.0-14.7)
[2021-04-05] MEDS: Sodium Chloride 0.9% 1,000 ML IV SCH (07:52)
[2021-04-05 08:21] LABS: Anisocytosis SLIGHT = 6-15 cells (100X) (0-5/hpf); Band 17 % (5-11); Hemoglobin 9.8 g/dL (14.0-18.0); Lymphocytes 6 % (21-51); MDiff Complete? YES; Mean Corpuscular HGB CONC 33.8 g/dL (32.0-36.0); Mean Corpuscular Hemoglobin 29.8 pg (27.0-31.0); Mean Corpuscular Volume 87.9 fL (78.0-98.0); Mean Platelet Volume 11.1 fL (7.4-10.4); Monocytes 1 % (0-10); Neutrophil 76 % (42-75); Platelet Count 62 thou/uL (130-400); Platelet Morphology Comment Appears Decreased; RBC Distribution Width 16.4 % (11.5-14.5); Red Blood Cell (RBC) Count 3.29 mill/uL (4.70-6.10); White Blood Cell (WBC) Count 7.2 thou/uL (4.8-10.8)
[2021-04-05] MEDS ORDERED: Potassium Phosphate 15 MMOL in Sodium Chloride 0.9% 100 ML IVPB SCH (09:15)
[2021-04-05] MEDS: D5 1/2 NS w/20 mEq KCL 1,000 ML IV SCH ×2 (09:38→17:52)
[2021-04-05] MEDS: Pantoprazole 40 MG VIAL IVP SCH (09:39)
[2021-04-05] MEDS: CEFEPIME HCL IN DEXTROSE 5 % 1 GM in Premix Bag 1 BAG IVPB SCH ×2 (09:39→20:48)
[2021-04-05] MEDS: Dexamethasone 4 mg/ml Vial SLOW IVP SCH (09:39)
[2021-04-05] MEDS: levETIRAcetam in NS 1,000 MG in Premix Bag 1 BAG IVPB SCH ×2 (09:40→20:48)
[2021-04-05] MEDS ORDERED: Multivit, Adult Inj 10 ML VIAL IV SCH (09:45)
[2021-04-05] MEDS: Multivitamins, Adult 10 ML, Potassium Chloride 20 MEQ in Dextrose 5 %-0.45 % NaCl 1,000 ML IV SCH (10:20)
[2021-04-05] MEDS ORDERED: PROPOFOL 200 MG/20 ML VIAL ONE (10:58)
[2021-04-05] MEDS ORDERED: Multivitamins, Adult 10 ML in D5 1/2 NS w/20 mEq KCL 1,000 ML IV SCH (12:00)
[2021-04-05] MEDS: Morphine 4 MG/ML VIAL SLOW IVP PRN ×2 (16:22→21:22)
[2021-04-05] MEDS: Budesonide 0.5 MG/2 ML NEB NEB SCH (18:50)
[2021-04-05] MEDS ORDERED: Folic Acid 1 MG TAB PO SCH (21:00)
[2021-04-06 03:47] LABS: #Lymphocytes 0.5 thou/uL (1.20-3.40); #Monocytes 0.2 thou/uL (0.11-0.59); #Neutrophils 4.4 thou/uL (1.40-6.50); %Basophils 0.2 % (0.0-1.0); %Lymphocytes 10.1 % (21.0-51.0); %Monocytes 3.5 % (0.0-10.0); %Neutrophils 86.1 % (42.0-75.0); Hemoglobin 9.9 g/dL (14.0-18.0); Mean Corpuscular HGB CONC 34.1 g/dL (32.0-36.0); Mean Corpuscular Hemoglobin 30.3 pg (27.0-31.0); Mean Corpuscular Volume 88.7 fL (78.0-98.0); Mean Platelet Volume 10.4 fL (7.4-10.4); Platelet Count 58 thou/uL (130-400); RBC Distribution Width 16.2 % (11.5-14.5); Red Blood Cell (RBC) Count 3.26 mill/uL (4.70-6.10); White Blood Cell (WBC) Count 5.2 thou/uL (4.8-10.8)
[2021-04-06 04:09] LABS: ALT (SGPT) 43 U/L (8-55); AST (SGOT) 51 U/L (5-34); Albumin 2.7 g/dL (3.4-4.8); Alkaline Phosphatase 152 U/L (40-110); Anion Gap 9 mmol/L (10-20); BUN (Urea Nitrogen) 6 mg/dL (8.4-25.7); Bilirubin, Total 4.4 mg/dL (0.2-1.2); Calc. Creatinine Clearance 134 mL/min (70-130); Calcium 7.8 mg/dL (7.8-10.44); Carbon Dioxide 30 mmol/L (23-31); Chloride 107 mmol/L (98-107); Globulin 2.5 g/dL (2.4-3.5); Glucose 176 mg/dL (80-115); Magnesium 2.2 mg/dL (1.6-2.6); Potassium 3.4 mmol/L (3.5-5.1); Protein, Total 5.2 g/dL (5.8-8.1); Sodium 143 mmol/L (136-145)
[2021-04-06 04:26] LABS: Phosphorus 1.9 mg/dL (2.3-4.7)
[2021-04-06] MEDS: D5 1/2 NS w/20 mEq KCL 1,000 ML IV SCH ×3 (04:39→20:56)
[2021-04-06] MEDS ORDERED: PHOS-NAK 1 PKT PACK PER TUBE SCH (04:45)
[2021-04-06] MEDS ORDERED: Potassium Bicarbonate/Cit Ac 20 MEQ TAB PER TUBE SCH (05:00)
[2021-04-06] MEDS: Haloperidol Lactate 5 MG/ML VIAL SLOW IVP SCH ×3 (05:16→17:32)
[2021-04-06] MEDS: Budesonide 0.5 MG/2 ML NEB NEB SCH ×2 (07:18→17:56)
[2021-04-06] MEDS ORDERED: Potassium Phosphate 15 MMOL in Sodium Chloride 0.9% 250 ML 250 ML IVPB SCH (07:30)
[2021-04-06] MEDS: Folic Acid 1 MG TAB PER TUBE SCH ×2 (08:03→20:56)
[2021-04-06] MEDS: Morphine 4 MG/ML VIAL SLOW IVP PRN (08:04)
[2021-04-06] MEDS: levETIRAcetam in NS 1,000 MG in Premix Bag 1 BAG IVPB SCH ×2 (08:04→20:56)
[2021-04-06] MEDS: Dexamethasone 4 mg/ml Vial SLOW IVP SCH (08:04)
[2021-04-06] MEDS: Pantoprazole 40 MG VIAL IVP SCH (08:05)
[2021-04-06] MEDS: Cefepime 1 GM in Sodium Chloride 0.9% 100 ML IVPB SCH ×2 (08:06→20:56)
[2021-04-06] MEDS ORDERED: Acetaminophen 500 MG TAB PO PRN (08:55)
[2021-04-06] MEDS: Multivitamins, Adult 10 ML, Potassium Chloride 20 MEQ in Dextrose 5 %-0.45 % NaCl 1,000 ML IV SCH (10:31)
[2021-04-07] MEDS: Haloperidol Lactate 5 MG/ML VIAL SLOW IVP SCH ×5 (00:04→23:24)
[2021-04-07] MEDS: D5 1/2 NS w/20 mEq KCL 1,000 ML IV SCH ×2 (01:03→17:43)
[2021-04-07] MEDS: Morphine 4 MG/ML VIAL SLOW IVP PRN ×3 (01:52→13:43)
[2021-04-07 05:36] LABS: ALT (SGPT) 127 U/L (8-55); AST (SGOT) 123 U/L (5-34); Albumin 2.6 g/dL (3.4-4.8); Alkaline Phosphatase 209 U/L (40-110); Anion Gap 9 mmol/L (10-20); BUN (Urea Nitrogen) 9 mg/dL (8.4-25.7); Bilirubin, Total 4.3 mg/dL (0.2-1.2); Calc. Creatinine Clearance 141 mL/min (70-130); Calcium 7.5 mg/dL (7.8-10.44); Carbon Dioxide 27 mmol/L (23-31); Chloride 110 mmol/L (98-107); Globulin 2.5 g/dL (2.4-3.5); Glucose 246 mg/dL (80-115); Magnesium 2.1 mg/dL (1.6-2.6); Potassium 4.1 mmol/L (3.5-5.1); Protein, Total 5.1 g/dL (5.8-8.1); Sodium 142 mmol/L (136-145)
[2021-04-07 05:37] LABS: Band 40 % (5-11); Hemoglobin 10.2 g/dL (14.0-18.0); Lymphocytes 7 % (21-51); MDiff Complete? YES; Mean Corpuscular HGB CONC 33.3 g/dL (32.0-36.0); Mean Corpuscular Hemoglobin 30.1 pg (27.0-31.0); Mean Corpuscular Volume 90.4 fL (78.0-98.0); Mean Platelet Volume 11.1 fL (7.4-10.4); Monocytes 3 % (0-10); Neutrophil 50 % (42-75); Platelet Count 55 thou/uL (130-400); Platelet Morphology Comment Appears Decreased; RBC Distribution Width 16.9 % (11.5-14.5); White Blood Cell (WBC) Count 5.6 thou/uL (4.8-10.8)
[2021-04-07 05:39] LABS: Phosphorus 1.8 mg/dL (2.3-4.7)
[2021-04-07] MEDS: PHOS-NAK 1 PKT PACK PER TUBE SCH ×2 (05:53→10:52)
[2021-04-07] MEDS: Budesonide 0.5 MG/2 ML NEB NEB SCH ×2 (07:29→18:06)
[2021-04-07] MEDS: Pantoprazole 40 MG VIAL IVP SCH (08:45)
[2021-04-07] MEDS: Cefepime 1 GM in Sodium Chloride 0.9% 100 ML IVPB SCH ×2 (08:45→20:27)
[2021-04-07] MEDS: Cyanocobalamin (Vitamin B-12) 1,000 MCG TAB PER TUBE SCH (08:45)
[2021-04-07] MEDS: Folic Acid 1 MG TAB PER TUBE SCH ×2 (08:45→20:28)
[2021-04-07] MEDS: Multivit, Therapeutic 1 TAB PER TUBE SCH (08:45)
[2021-04-07] MEDS: levETIRAcetam in NS 1,000 MG in Premix Bag 1 BAG IVPB SCH ×2 (08:46→20:28)
[2021-04-07 15:59] LABS: Actual Bicarbonate (HCO3a) 27.7 mEq/L (22-28); Base Excess (BEa) 3.9 mEq/L (-2.0 to +3.0); CO2 Tension 38.4 mmHg (35.0-45.0); Calcium, Ionized (arterial) 1.05 mmol/L (1.12-1.30); Carboxyhemoglobin (COHb) 0.3 gm% (0.0-3.0); Hemoglobin (Hb) 10.4 g/dL (14.0-18.0); pH, Arterial 7.48 (7.35-7.45)
[2021-04-07 16:01] LABS: Puncture Site RBA
[2021-04-08 04:26] LABS: #Lymphocytes 0.5 thou/uL (1.20-3.40); #Monocytes 0.2 thou/uL (0.11-0.59); #Neutrophils 5.9 thou/uL (1.40-6.50); %Eosinophils 0.2 % (0.0-10.0); %Lymphocytes 7.8 % (21.0-51.0); %Monocytes 3.4 % (0.0-10.0); %Neutrophils 88.7 % (42.0-75.0); Hemoglobin 8.7 g/dL (14.0-18.0); Mean Corpuscular HGB CONC 33.3 g/dL (32.0-36.0); Mean Corpuscular Hemoglobin 30.3 pg (27.0-31.0); Mean Corpuscular Volume 91.2 fL (78.0-98.0); Mean Platelet Volume 10.8 fL (7.4-10.4); Platelet Count 53 thou/uL (130-400); Red Blood Cell (RBC) Count 2.86 mill/uL (4.70-6.10); White Blood Cell (WBC) Count 6.6 thou/uL (4.8-10.8)
[2021-04-08 04:51] LABS: ALT (SGPT) 102 U/L (8-55); AST (SGOT) 50 U/L (5-34); Albumin 2.1 g/dL (3.4-4.8); Alkaline Phosphatase 165 U/L (40-110); Anion Gap 6 mmol/L (10-20); BUN (Urea Nitrogen) 13 mg/dL (8.4-25.7); Bilirubin, Total 3.2 mg/dL (0.2-1.2); Calc. Creatinine Clearance 141 mL/min (70-130); Calcium 7.2 mg/dL (7.8-10.44); Carbon Dioxide 29 mmol/L (23-31); Chloride 110 mmol/L (98-107); Globulin 2.3 g/dL (2.4-3.5); Glucose 197 mg/dL (80-115); Magnesium 2.1 mg/dL (1.6-2.6); Phosphorus 2.5 mg/dL (2.3-4.7); Potassium 4.2 mmol/L (3.5-5.1); Protein, Total 4.4 g/dL (5.8-8.1); Sodium 141 mmol/L (136-145)
[2021-04-08] MEDS: Haloperidol Lactate 5 MG/ML VIAL SLOW IVP SCH ×3 (05:24→17:34)
[2021-04-08] MEDS: D5 1/2 NS w/20 mEq KCL 1,000 ML IV SCH ×2 (05:59→23:07)
[2021-04-08] MEDS: Budesonide 0.5 MG/2 ML NEB NEB SCH ×2 (08:30→18:35)
[2021-04-08] MEDS: levETIRAcetam in NS 1,000 MG in Premix Bag 1 BAG IVPB SCH ×2 (09:04→20:24)
[2021-04-08] MEDS: Cyanocobalamin (Vitamin B-12) 1,000 MCG TAB PER TUBE SCH (09:04)
[2021-04-08] MEDS: Folic Acid 1 MG TAB PER TUBE SCH ×2 (09:04→20:24)
[2021-04-08] MEDS: Pantoprazole 40 MG VIAL IVP SCH (09:04)
[2021-04-08] MEDS: Multivit, Therapeutic 1 TAB PER TUBE SCH (09:04)
[2021-04-08] MEDS: Cefepime 1 GM in Sodium Chloride 0.9% 100 ML IVPB SCH ×2 (09:04→20:23)
[2021-04-08] MEDS: Morphine 4 MG/ML VIAL SLOW IVP PRN ×2 (09:55→19:48)
[2021-04-08] MEDS ORDERED: Scopolamine 1.5 mg/72 hour Patch TD SCH (11:00)
[2021-04-08] MEDS ORDERED: Albumin 25% 25 GM/100 ML BOT IVPB SCH (12:33)
[2021-04-09] MEDS: Haloperidol Lactate 5 MG/ML VIAL SLOW IVP SCH ×4 (00:23→17:52)
[2021-04-09] MEDS: Morphine 4 MG/ML VIAL SLOW IVP PRN ×3 (01:29→20:28)
[2021-04-09 04:08] LABS: #Lymphocytes 0.5 thou/uL (1.20-3.40); #Monocytes 0.2 thou/uL (0.11-0.59); #Neutrophils 3.7 thou/uL (1.40-6.50); %Basophils 0.3 % (0.0-1.0); %Eosinophils 0.6 % (0.0-10.0); %Lymphocytes 10.2 % (21.0-51.0); %Monocytes 5.1 % (0.0-10.0); %Neutrophils 83.9 % (42.0-75.0); Hemoglobin 8.3 g/dL (14.0-18.0); Mean Corpuscular HGB CONC 33.6 g/dL (32.0-36.0); Mean Corpuscular Hemoglobin 30.8 pg (27.0-31.0); Mean Corpuscular Volume 91.8 fL (78.0-98.0); Mean Platelet Volume 10.7 fL (7.4-10.4); Platelet Count 50 thou/uL (130-400); RBC Distribution Width 16.8 % (11.5-14.5); Red Blood Cell (RBC) Count 2.68 mill/uL (4.70-6.10); White Blood Cell (WBC) Count 4.4 thou/uL (4.8-10.8)
[2021-04-09 04:19] LABS: Anion Gap 6 mmol/L (10-20); BUN (Urea Nitrogen) 14 mg/dL (8.4-25.7); Calc. Creatinine Clearance 143 mL/min (70-130); Calcium 7.2 mg/dL (7.8-10.44); Carbon Dioxide 28 mmol/L (23-31); Chloride 108 mmol/L (98-107); Glucose 261 mg/dL (80-115); Potassium 4.2 mmol/L (3.5-5.1); Sodium 138 mmol/L (136-145)
[2021-04-09] MEDS ORDERED: Dextrose 5% in Water 1,000 ML IV PRN (04:45)
[2021-04-09] MEDS ORDERED: Dextrose 50% Abboject 50 ML SYRINGE IVP PRN (04:45)
[2021-04-09] MEDS: HumaLOG 300 UNITS/3 ML VIAL SC PRN ×4 (04:45→23:33)
[2021-04-09 05:05] LABS: Hemoglobin A1c 5.6 % (4.0-6.0)
[2021-04-09] MEDS: Budesonide 0.5 MG/2 ML NEB NEB SCH ×2 (07:55→19:51)
[2021-04-09] MEDS: Pantoprazole 40 MG VIAL IVP SCH (08:54)
[2021-04-09] MEDS: Multivit, Therapeutic 1 TAB PER TUBE SCH (08:54)
[2021-04-09] MEDS: Folic Acid 1 MG TAB PER TUBE SCH ×2 (08:54→20:28)
[2021-04-09] MEDS: Cefepime 1 GM in Sodium Chloride 0.9% 100 ML IVPB SCH ×2 (08:54→20:28)
[2021-04-09] MEDS: levETIRAcetam in NS 1,000 MG in Premix Bag 1 BAG IVPB SCH ×2 (08:54→21:27)
[2021-04-09] MEDS: Cyanocobalamin (Vitamin B-12) 1,000 MCG TAB PER TUBE SCH (08:54)
[2021-04-09] MEDS: D5 1/2 NS w/20 mEq KCL 1,000 ML IV SCH (13:16)
[2021-04-09] MEDS ORDERED: PROPOFOL 20 ML ONE (19:26)
[2021-04-09] MEDS ORDERED: PROPOFOL 200 MG/20 ML VIAL IVP SCH (19:40)
[2021-04-09] MEDS ORDERED: Propofol 1,000 MG/100 ML VIAL IV ONE (19:48)
[2021-04-09] MEDS ORDERED: Propofol 500 MG/50 ML VIAL IV PRN (19:52)
[2021-04-09] MEDS ORDERED: Vecuronium 10 MG VIAL IVP SCH (20:00)
[2021-04-09] MEDS ORDERED: Vecuronium 10 MG VIAL ONE (20:01)
[2021-04-09] MEDS ORDERED: Vecuronium Bromide 50 MG in Sodium Chloride 0.9% 250 ML 250 ML IV SCH (20:45)
[2021-04-09] MEDS ORDERED: cefTRIAXone\\ROCEPHIN 1 GM in Sodium Chloride 0.9% 100 ML IVPB SCH (21:00)
[2021-04-09] MEDS ORDERED: Propofol BOLUS 1,000 MG/100 ML VIAL IV PRN (21:00)
[2021-04-09] MEDS ORDERED: Vecuronium Bromide 20 MG VIAL IV PRN (21:24)
[2021-04-09] MEDS: Vecuronium 10 MG VIAL IV PRN (21:52)
[2021-04-10] MEDS: Vecuronium 10 MG VIAL IV PRN ×2 (01:07→10:21)
[2021-04-10] MEDS: Haloperidol Lactate 5 MG/ML VIAL SLOW IVP SCH ×4 (01:15→17:36)
[2021-04-10] MEDS: D5 1/2 NS w/20 mEq KCL 1,000 ML IV SCH ×2 (04:51→16:06)
[2021-04-10] MEDS: HumaLOG 300 UNITS/3 ML VIAL SC PRN ×3 (05:30→22:18)
[2021-04-10 05:43] LABS: #Eosinphils 0.1 thou/uL (0.0-0.7); #Lymphocytes 0.5 thou/uL (1.20-3.40); #Monocytes 0.3 thou/uL (0.11-0.59); %Eosinophils 1.3 % (0.0-10.0); %Lymphocytes 10.9 % (21.0-51.0); %Monocytes 5.2 % (0.0-10.0); %Neutrophils 82.6 % (42.0-75.0); Hemoglobin 8.9 g/dL (14.0-18.0); Mean Corpuscular HGB CONC 31.7 g/dL (32.0-36.0); Mean Corpuscular Hemoglobin 29.1 pg (27.0-31.0); Mean Corpuscular Volume 91.9 fL (78.0-98.0); Mean Platelet Volume 10.4 fL (7.4-10.4); Platelet Count 59 thou/uL (130-400); RBC Distribution Width 16.5 % (11.5-14.5); Red Blood Cell (RBC) Count 3.07 mill/uL (4.70-6.10); White Blood Cell (WBC) Count 4.8 thou/uL (4.8-10.8)
[2021-04-10 05:59] LABS: Anion Gap 8 mmol/L (10-20); BUN (Urea Nitrogen) 11 mg/dL (8.4-25.7); Calc. Creatinine Clearance 155 mL/min (70-130); Calcium 7.3 mg/dL (7.8-10.44); Carbon Dioxide 27 mmol/L (23-31); Chloride 106 mmol/L (98-107); Glucose 178 mg/dL (80-115); Potassium 4.5 mmol/L (3.5-5.1); Sodium 136 mmol/L (136-145)
[2021-04-10] MEDS: Budesonide 0.5 MG/2 ML NEB NEB SCH ×2 (08:14→20:03)
[2021-04-10] MEDS: Morphine 4 MG/ML VIAL SLOW IVP PRN ×2 (08:53→20:30)
[2021-04-10] MEDS: Cefepime 2 GM in Sodium Chloride 0.9% 100 ML IVPB SCH ×2 (10:06→16:06)
[2021-04-10] MEDS: Cyanocobalamin (Vitamin B-12) 1,000 MCG TAB PER TUBE SCH (10:07)
[2021-04-10] MEDS: Folic Acid 1 MG TAB PER TUBE SCH ×2 (10:07→21:11)
[2021-04-10] MEDS: levETIRAcetam in NS 1,000 MG in Premix Bag 1 BAG IVPB SCH ×2 (10:07→21:17)
[2021-04-10] MEDS: Pantoprazole 40 MG VIAL IVP SCH (10:08)
[2021-04-10] MEDS: Multivit, Therapeutic 1 TAB PER TUBE SCH (10:08)
[2021-04-10] MEDS ORDERED: Scopolamine 1.5 mg/72 hour Patch ONE (10:10)
[2021-04-10] MEDS: Scopolamine 1.5 mg/72 hour Patch TOP SCH (10:21)
[2021-04-10] MEDS: methylPREDNISolone Sod Succ 40 MG VIAL IVP SCH ×2 (11:47→17:36)
[2021-04-10] MEDS ORDERED: Norepinephrine 8 MG/0.9% NS 250 ML ONE (14:41)
[2021-04-10] MEDS ORDERED: Albumin 5% 500 ML ONE (14:59)
[2021-04-10] MEDS ORDERED: Norepinephrine 8 MG/0.9% NS 250 ML IVPB PRN (15:48)
[2021-04-10] MEDS: Propofol 1,000 MG/100 ML VIAL IV PRN (22:05)
[2021-04-10] MEDS ORDERED: VANCOMYCIN 2 GRAM/400 ML BAG 2 GM in Premix Bag 1 BAG IVPB SCH (23:59)
[2021-04-11] MEDS: Haloperidol Lactate 5 MG/ML VIAL SLOW IVP SCH ×5 (00:25→23:24)
[2021-04-11] MEDS: methylPREDNISolone Sod Succ 40 MG VIAL IVP SCH ×5 (00:26→23:25)
[2021-04-11] MEDS: Cefepime 2 GM in Sodium Chloride 0.9% 100 ML IVPB SCH ×3 (00:27→16:45)
[2021-04-11] MEDS: Morphine 4 MG/ML VIAL SLOW IVP PRN (03:26)
[2021-04-11] MEDS: HumaLOG 300 UNITS/3 ML VIAL SC PRN ×4 (04:27→23:09)
[2021-04-11] MEDS: Propofol 1,000 MG/100 ML VIAL IV PRN ×2 (05:35→16:49)
[2021-04-11] MEDS: Budesonide 0.5 MG/2 ML NEB NEB SCH ×2 (08:12→20:34)
[2021-04-11] MEDS: VANCOMYCIN 1.25 GM/250 ML BAG 1.25 GM in Premix Bag 1 BAG IVPB SCH ×2 (08:35→15:30)
[2021-04-11] MEDS: Multivit, Therapeutic 1 TAB PER TUBE SCH (09:24)
[2021-04-11] MEDS: Pantoprazole 40 MG VIAL IVP SCH (09:24)
[2021-04-11] MEDS: Folic Acid 1 MG TAB PER TUBE SCH ×2 (09:24→20:48)
[2021-04-11] MEDS: levETIRAcetam in NS 1,000 MG in Premix Bag 1 BAG IVPB SCH ×2 (09:25→20:48)
[2021-04-11] MEDS: Cyanocobalamin (Vitamin B-12) 1,000 MCG TAB PER TUBE SCH (09:28)
[2021-04-11] MEDS: D5 1/2 NS w/20 mEq KCL 1,000 ML IV SCH ×2 (09:52→20:48)
[2021-04-11 23:22] LABS: Vancomycin, Trough 10.7 ug/mL
[2021-04-11] MEDS: Vancomycin 1.5 GRAM/300 ML BAG 1.5 GM in Premix Bag 1 BAG IVPB SCH (23:48)
[2021-04-12] MEDS: Propofol 1,000 MG/100 ML VIAL IV PRN ×4 (00:43→18:28)
[2021-04-12] MEDS: Morphine 4 MG/ML VIAL SLOW IVP PRN ×2 (01:33→16:36)
[2021-04-12] MEDS: Cefepime 2 GM in Sodium Chloride 0.9% 100 ML IVPB SCH ×3 (01:48→16:39)
[2021-04-12] MEDS: HumaLOG 300 UNITS/3 ML VIAL SC PRN ×4 (04:40→22:23)
[2021-04-12] MEDS: Haloperidol Lactate 5 MG/ML VIAL SLOW IVP SCH ×3 (06:00→18:28)
[2021-04-12] MEDS: methylPREDNISolone Sod Succ 40 MG VIAL IVP SCH ×2 (06:00→20:46)
[2021-04-12] MEDS: Budesonide 0.5 MG/2 ML NEB NEB SCH (06:47)
[2021-04-12] MEDS: Vancomycin 1.5 GRAM/300 ML BAG 1.5 GM in Premix Bag 1 BAG IVPB SCH (08:44)
[2021-04-12] MEDS: Multivit, Therapeutic 1 TAB PER TUBE SCH (08:48)
[2021-04-12] MEDS: Folic Acid 1 MG TAB PER TUBE SCH ×2 (08:48→20:44)
[2021-04-12] MEDS: Cyanocobalamin (Vitamin B-12) 1,000 MCG TAB PER TUBE SCH (08:51)
[2021-04-12] MEDS: Pantoprazole 40 MG VIAL IVP SCH (08:52)
[2021-04-12] MEDS: levETIRAcetam in NS 1,000 MG in Premix Bag 1 BAG IVPB SCH ×2 (09:58→20:44)
[2021-04-12] MEDS: Metoclopramide HCl 10 MG/2 ML VIAL IVP SCH ×2 (13:58→21:02)
[2021-04-13] MEDS: Haloperidol Lactate 5 MG/ML VIAL SLOW IVP SCH ×2 (00:05→05:33)
[2021-04-13] MEDS: Morphine 4 MG/ML VIAL SLOW IVP PRN (00:05)
[2021-04-13] MEDS: Cefepime 2 GM in Sodium Chloride 0.9% 100 ML IVPB SCH ×3 (00:05→17:56)
[2021-04-13] MEDS: Propofol 1,000 MG/100 ML VIAL IV PRN ×4 (00:42→21:09)
[2021-04-13] MEDS: HumaLOG 300 UNITS/3 ML VIAL SC PRN ×3 (03:57→17:47)
[2021-04-13 04:49] LABS: #Lymphocytes 0.4 thou/uL (1.20-3.40); #Monocytes 0.2 thou/uL (0.11-0.59); #Neutrophils 4.7 thou/uL (1.40-6.50); %Eosinophils 0.1 % (0.0-10.0); %Lymphocytes 7.4 % (21.0-51.0); %Monocytes 2.8 % (0.0-10.0); %Neutrophils 89.7 % (42.0-75.0); Hemoglobin 9.1 g/dL (14.0-18.0); Mean Corpuscular HGB CONC 34.4 g/dL (32.0-36.0); Mean Corpuscular Volume 90.1 fL (78.0-98.0); Mean Platelet Volume 9.6 fL (7.4-10.4); Platelet Count 85 thou/uL (130-400); RBC Distribution Width 16.4 % (11.5-14.5); Red Blood Cell (RBC) Count 2.93 mill/uL (4.70-6.10); White Blood Cell (WBC) Count 5.3 thou/uL (4.8-10.8)
[2021-04-13 05:01] LABS: ALT (SGPT) 59 U/L (8-55); AST (SGOT) 36 U/L (5-34); Albumin 2.2 g/dL (3.4-4.8); Alkaline Phosphatase 181 U/L (40-110); Anion Gap 7 mmol/L (10-20); BUN (Urea Nitrogen) 16 mg/dL (8.4-25.7); Bilirubin, Total 1.8 mg/dL (0.2-1.2); Calc. Creatinine Clearance 153 mL/min (70-130); Calcium 7.3 mg/dL (7.8-10.44); Carbon Dioxide 27 mmol/L (23-31); Chloride 106 mmol/L (98-107); Globulin 3.3 g/dL (2.4-3.5); Glucose 228 mg/dL (80-115); Potassium 4.1 mmol/L (3.5-5.1); Protein, Total 5.5 g/dL (5.8-8.1); Sodium 136 mmol/L (136-145)
[2021-04-13] MEDS: Metoclopramide HCl 10 MG/2 ML VIAL IVP SCH ×3 (05:33→21:02)
[2021-04-13] MEDS ORDERED: Haloperidol Lactate 5 MG/ML VIAL SLOW IVP PRN (08:48)
[2021-04-13] MEDS: levETIRAcetam in NS 1,000 MG in Premix Bag 1 BAG IVPB SCH ×2 (09:13→20:59)
[2021-04-13] MEDS: Pantoprazole 40 MG VIAL IVP SCH (09:14)
[2021-04-13] MEDS: Multivit, Therapeutic 1 TAB PER TUBE SCH (09:14)
[2021-04-13] MEDS: Folic Acid 1 MG TAB PER TUBE SCH ×2 (09:14→21:02)
[2021-04-13] MEDS: methylPREDNISolone Sod Succ 40 MG VIAL IVP SCH ×2 (09:14→21:03)
[2021-04-13] MEDS: Scopolamine 1.5 mg/72 hour Patch TOP SCH (09:15)
[2021-04-13] MEDS: Cyanocobalamin (Vitamin B-12) 1,000 MCG TAB PER TUBE SCH (09:27)
[2021-04-13] MEDS: risperiDONE 1 MG TAB PO SCH ×2 (10:57→21:02)
[2021-04-14] MEDS: Cefepime 2 GM in Sodium Chloride 0.9% 100 ML IVPB SCH ×3 (01:55→16:41)
[2021-04-14] MEDS: Propofol 1,000 MG/100 ML VIAL IV PRN ×3 (04:56→20:12)
[2021-04-14 05:37] LABS: #Basophils 0.1 thou/uL (0.0-0.2); #Lymphocytes 0.3 thou/uL (1.20-3.40); #Monocytes 0.2 thou/uL (0.11-0.59); #Neutrophils 5.9 thou/uL (1.40-6.50); %Basophils 0.8 % (0.0-1.0); %Eosinophils 0.1 % (0.0-10.0); %Lymphocytes 5.1 % (21.0-51.0); %Monocytes 3.4 % (0.0-10.0); %Neutrophils 90.5 % (42.0-75.0); Mean Corpuscular HGB CONC 32.4 g/dL (32.0-36.0); Mean Corpuscular Hemoglobin 29.1 pg (27.0-31.0); Mean Corpuscular Volume 89.9 fL (78.0-98.0); Mean Platelet Volume 9.3 fL (7.4-10.4); Platelet Count 88 thou/uL (130-400); RBC Distribution Width 16.7 % (11.5-14.5); Red Blood Cell (RBC) Count 3.07 mill/uL (4.70-6.10); White Blood Cell (WBC) Count 6.6 thou/uL (4.8-10.8)
[2021-04-14] MEDS: Metoclopramide HCl 10 MG/2 ML VIAL IVP SCH ×3 (06:21→21:53)
[2021-04-14] MEDS: Pantoprazole 40 MG VIAL IVP SCH (09:32)
[2021-04-14] MEDS: risperiDONE 1 MG TAB PO SCH ×2 (09:33→20:12)
[2021-04-14] MEDS: methylPREDNISolone Sod Succ 40 MG VIAL IVP SCH ×2 (09:33→20:13)
[2021-04-14] MEDS: Folic Acid 1 MG TAB PER TUBE SCH ×2 (09:33→20:12)
[2021-04-14] MEDS: Multivit, Therapeutic 1 TAB PER TUBE SCH (09:33)
[2021-04-14] MEDS: Cyanocobalamin (Vitamin B-12) 1,000 MCG TAB PER TUBE SCH (09:33)
[2021-04-14] MEDS: Morphine 4 MG/ML VIAL SLOW IVP PRN (09:33)
[2021-04-14] MEDS: levETIRAcetam in NS 1,000 MG in Premix Bag 1 BAG IVPB SCH ×2 (09:36→20:12)
[2021-04-14] MEDS: HumaLOG 300 UNITS/3 ML VIAL SC PRN ×2 (16:41→22:38)
[2021-04-15] MEDS: Lorazepam 2 MG/ML VIAL SLOW IVP PRN ×3 (00:37→23:41)
[2021-04-15] MEDS: Cefepime 2 GM in Sodium Chloride 0.9% 100 ML IVPB SCH ×4 (00:55→23:40)
[2021-04-15] MEDS: Propofol 1,000 MG/100 ML VIAL IV PRN ×2 (02:37→23:40)
[2021-04-15] MEDS: HumaLOG 300 UNITS/3 ML VIAL SC PRN ×4 (03:21→21:07)
[2021-04-15 03:56] LABS: #Lymphocytes 0.3 thou/uL (1.20-3.40); #Monocytes 0.1 thou/uL (0.11-0.59); %Basophils 0.3 % (0.0-1.0); %Eosinophils 0.1 % (0.0-10.0); %Monocytes 1.9 % (0.0-10.0); %Neutrophils 90.8 % (42.0-75.0); Hemoglobin 8.7 g/dL (14.0-18.0); Mean Corpuscular HGB CONC 33.1 g/dL (32.0-36.0); Mean Corpuscular Hemoglobin 29.9 pg (27.0-31.0); Mean Corpuscular Volume 90.2 fL (78.0-98.0); Mean Platelet Volume 9.7 fL (7.4-10.4); Platelet Count 84 thou/uL (130-400); RBC Distribution Width 16.4 % (11.5-14.5); Red Blood Cell (RBC) Count 2.92 mill/uL (4.70-6.10); White Blood Cell (WBC) Count 4.4 thou/uL (4.8-10.8)
[2021-04-15] MEDS: Metoclopramide HCl 10 MG/2 ML VIAL IVP SCH ×3 (05:22→20:11)
[2021-04-15] MEDS: Cyanocobalamin (Vitamin B-12) 1,000 MCG TAB PER TUBE SCH (08:26)
[2021-04-15] MEDS: Folic Acid 1 MG TAB PER TUBE SCH ×2 (08:26→20:10)
[2021-04-15] MEDS: Multivit, Therapeutic 1 TAB PER TUBE SCH (08:26)
[2021-04-15] MEDS: Pantoprazole 40 MG VIAL IVP SCH (08:26)
[2021-04-15] MEDS: risperiDONE 1 MG TAB PO SCH ×2 (08:26→20:10)
[2021-04-15] MEDS: methylPREDNISolone Sod Succ 40 MG VIAL IVP SCH ×2 (08:27→20:11)
[2021-04-15] MEDS: levETIRAcetam in NS 1,000 MG in Premix Bag 1 BAG IVPB SCH ×2 (08:27→20:10)
[2021-04-16 04:46] LABS: #Lymphocytes 0.6 thou/uL (1.20-3.40); #Monocytes 0.1 thou/uL (0.11-0.59); #Neutrophils 3.7 thou/uL (1.40-6.50); %Lymphocytes 12.9 % (21.0-51.0); %Monocytes 2.7 % (0.0-10.0); %Neutrophils 84.4 % (42.0-75.0); Hemoglobin 9.1 g/dL (14.0-18.0); Mean Corpuscular HGB CONC 33.7 g/dL (32.0-36.0); Mean Corpuscular Hemoglobin 30.4 pg (27.0-31.0); Mean Corpuscular Volume 90.2 fL (78.0-98.0); Mean Platelet Volume 8.9 fL (7.4-10.4); Platelet Count 93 thou/uL (130-400); Red Blood Cell (RBC) Count 2.99 mill/uL (4.70-6.10); White Blood Cell (WBC) Count 4.4 thou/uL (4.8-10.8)
[2021-04-16] MEDS: Metoclopramide HCl 10 MG/2 ML VIAL IVP SCH ×3 (05:20→20:52)
[2021-04-16] MEDS: HumaLOG 300 UNITS/3 ML VIAL SC PRN ×2 (05:35→21:04)
[2021-04-16] MEDS: Cefepime 2 GM in Sodium Chloride 0.9% 100 ML IVPB SCH ×2 (08:12→16:20)
[2021-04-16] MEDS: risperiDONE 1 MG TAB PO SCH ×2 (08:13→20:51)
[2021-04-16] MEDS: Pantoprazole 40 MG VIAL IVP SCH (08:13)
[2021-04-16] MEDS: Folic Acid 1 MG TAB PER TUBE SCH ×2 (08:13→20:51)
[2021-04-16] MEDS: Multivit, Therapeutic 1 TAB PER TUBE SCH (08:13)
[2021-04-16] MEDS: Cyanocobalamin (Vitamin B-12) 1,000 MCG TAB PER TUBE SCH (08:13)
[2021-04-16] MEDS: methylPREDNISolone Sod Succ 40 MG VIAL IVP SCH ×2 (08:13→20:51)
[2021-04-16] MEDS: Scopolamine 1.5 mg/72 hour Patch TOP SCH (08:14)
[2021-04-16] MEDS: levETIRAcetam in NS 1,000 MG in Premix Bag 1 BAG IVPB SCH ×2 (09:06→20:51)
[2021-04-17] MEDS: Cefepime 2 GM in Sodium Chloride 0.9% 100 ML IVPB SCH ×3 (00:45→16:08)
[2021-04-17] MEDS: HumaLOG 300 UNITS/3 ML VIAL SC PRN ×3 (04:15→16:22)
[2021-04-17 04:48] LABS: #Lymphocytes 0.3 thou/uL (1.20-3.40); #Monocytes 0.1 thou/uL (0.11-0.59); #Neutrophils 4.1 thou/uL (1.40-6.50); %Basophils 0.5 % (0.0-1.0); %Eosinophils 0.2 % (0.0-10.0); %Lymphocytes 5.6 % (21.0-51.0); %Monocytes 2.7 % (0.0-10.0); Mean Corpuscular Hemoglobin 30.4 pg (27.0-31.0); Mean Corpuscular Volume 89.5 fL (78.0-98.0); Mean Platelet Volume 9.1 fL (7.4-10.4); Platelet Count 98 thou/uL (130-400); Red Blood Cell (RBC) Count 2.97 mill/uL (4.70-6.10); White Blood Cell (WBC) Count 4.5 thou/uL (4.8-10.8)
[2021-04-17] MEDS: Metoclopramide HCl 10 MG/2 ML VIAL IVP SCH ×3 (06:03→21:33)
[2021-04-17] MEDS: levETIRAcetam in NS 1,000 MG in Premix Bag 1 BAG IVPB SCH ×2 (07:37→21:33)
[2021-04-17] MEDS: risperiDONE 1 MG TAB PO SCH ×2 (07:38→21:32)
[2021-04-17] MEDS: Multivit, Therapeutic 1 TAB PER TUBE SCH (07:38)
[2021-04-17] MEDS: Pantoprazole 40 MG VIAL IVP SCH (07:39)
[2021-04-17] MEDS: Cyanocobalamin (Vitamin B-12) 1,000 MCG TAB PER TUBE SCH (07:39)
[2021-04-17] MEDS: Folic Acid 1 MG TAB PER TUBE SCH ×2 (07:39→21:32)
[2021-04-17] MEDS: methylPREDNISolone Sod Succ 40 MG VIAL IVP SCH ×2 (07:39→21:32)
[2021-04-18] MEDS: Cefepime 2 GM in Sodium Chloride 0.9% 100 ML IVPB SCH ×3 (00:39→16:44)
[2021-04-18 04:34] LABS: #Lymphocytes 0.4 thou/uL (1.20-3.40); #Monocytes 0.1 thou/uL (0.11-0.59); #Neutrophils 3.1 thou/uL (1.40-6.50); %Eosinophils 0.2 % (0.0-10.0); %Lymphocytes 10.5 % (21.0-51.0); %Monocytes 3.6 % (0.0-10.0); %Neutrophils 85.6 % (42.0-75.0); Hemoglobin 9.3 g/dL (14.0-18.0); Mean Corpuscular Hemoglobin 29.8 pg (27.0-31.0); Mean Corpuscular Volume 90.6 fL (78.0-98.0); Mean Platelet Volume 8.7 fL (7.4-10.4); Platelet Count 120 thou/uL (130-400); RBC Distribution Width 16.2 % (11.5-14.5); Red Blood Cell (RBC) Count 3.11 mill/uL (4.70-6.10); White Blood Cell (WBC) Count 3.6 thou/uL (4.8-10.8)
[2021-04-18] MEDS: HumaLOG 300 UNITS/3 ML VIAL SC PRN ×2 (05:54→10:55)
[2021-04-18] MEDS: Metoclopramide HCl 10 MG/2 ML VIAL IVP SCH ×3 (05:55→21:55)
[2021-04-18] MEDS: Cyanocobalamin (Vitamin B-12) 1,000 MCG TAB PER TUBE SCH (08:56)
[2021-04-18] MEDS: Folic Acid 1 MG TAB PER TUBE SCH ×2 (08:57→21:50)
[2021-04-18] MEDS: methylPREDNISolone Sod Succ 40 MG VIAL IVP SCH ×2 (08:57→21:55)
[2021-04-18] MEDS: levETIRAcetam in NS 1,000 MG in Premix Bag 1 BAG IVPB SCH ×2 (08:57→21:55)
[2021-04-18] MEDS: risperiDONE 1 MG TAB PO SCH ×2 (08:57→21:55)
[2021-04-18] MEDS: Pantoprazole 40 MG VIAL IVP SCH (08:57)
[2021-04-18] MEDS: Multivit, Therapeutic 1 TAB PER TUBE SCH (08:57)
[2021-04-19] MEDS: Cefepime 2 GM in Sodium Chloride 0.9% 100 ML IVPB SCH ×3 (01:30→16:44)
[2021-04-19] MEDS: Metoclopramide HCl 10 MG/2 ML VIAL IVP SCH ×3 (06:12→22:30)
[2021-04-19] MEDS: Folic Acid 1 MG TAB PER TUBE SCH ×2 (09:28→22:30)
[2021-04-19] MEDS: risperiDONE 1 MG TAB PO SCH ×2 (09:28→22:30)
[2021-04-19] MEDS: Multivit, Therapeutic 1 TAB PER TUBE SCH (09:28)
[2021-04-19] MEDS: Cyanocobalamin (Vitamin B-12) 1,000 MCG TAB PER TUBE SCH (09:28)
[2021-04-19] MEDS: Scopolamine 1.5 mg/72 hour Patch TOP SCH (09:30)
[2021-04-19] MEDS: Pantoprazole 40 MG VIAL IVP SCH (09:30)
[2021-04-19] MEDS: levETIRAcetam in NS 1,000 MG in Premix Bag 1 BAG IVPB SCH ×2 (09:30→22:30)
[2021-04-19] MEDS: methylPREDNISolone Sod Succ 40 MG VIAL IVP SCH (09:58)
[2021-04-19 13:28] VITALS: BMI 28.6
[2021-04-19] MEDS: Morphine 4 MG/ML VIAL SLOW IVP PRN (22:31)
[2021-04-20] MEDS: Cefepime 2 GM in Sodium Chloride 0.9% 100 ML IVPB SCH ×2 (00:45→08:33)
[2021-04-20] MEDS: Metoclopramide HCl 10 MG/2 ML VIAL IVP SCH ×2 (06:13→14:29)
[2021-04-20] MEDS ORDERED: predniSONE 20 MG TAB PO SCH (08:00)
[2021-04-20] MEDS: Folic Acid 1 MG TAB PER TUBE SCH ×2 (08:31→21:01)
[2021-04-20] MEDS: Multivit, Therapeutic 1 TAB PER TUBE SCH (08:31)
[2021-04-20] MEDS: Cyanocobalamin (Vitamin B-12) 1,000 MCG TAB PER TUBE SCH (08:31)
[2021-04-20] MEDS: Pantoprazole 40 MG VIAL IVP SCH (08:32)
[2021-04-20] MEDS: risperiDONE 1 MG TAB PO SCH (08:32)
[2021-04-20 08:34] LABS: #Lymphocytes 0.6 thou/uL (1.20-3.40); #Monocytes 0.4 thou/uL (0.11-0.59); #Neutrophils 3.8 thou/uL (1.40-6.50); %Monocytes 8.6 % (0.0-10.0); %Neutrophils 77.4 % (42.0-75.0); Hemoglobin 9.6 g/dL (14.0-18.0); Mean Corpuscular HGB CONC 31.4 g/dL (32.0-36.0); Mean Corpuscular Hemoglobin 29.1 pg (27.0-31.0); Mean Corpuscular Volume 92.5 fL (78.0-98.0); Mean Platelet Volume 8.5 fL (7.4-10.4); Platelet Count 167 thou/uL (130-400); RBC Distribution Width 17.1 % (11.5-14.5); White Blood Cell (WBC) Count 4.9 thou/uL (4.8-10.8)
[2021-04-20 09:20] LABS: Anion Gap 7 mmol/L (10-20); BUN (Urea Nitrogen) 17 mg/dL (8.4-25.7); Calc. Creatinine Clearance 139 mL/min (70-130); Calcium 7.5 mg/dL (7.8-10.44); Carbon Dioxide 27 mmol/L (23-31); Chloride 111 mmol/L (98-107); Glucose 287 mg/dL (80-115); Potassium 3.7 mmol/L (3.5-5.1); Sodium 141 mmol/L (136-145)
[2021-04-20] MEDS: levETIRAcetam in NS 1,000 MG in Premix Bag 1 BAG IVPB SCH (09:22)
[2021-04-20] MEDS ORDERED: risperiDONE 1 MG TAB PO SCH ×2 (10:00→21:00)
[2021-04-20] MEDS: HumaLOG 300 UNITS/3 ML VIAL SC PRN ×2 (13:30→17:18)
[2021-04-20 20:40] VITALS: TEMP 98.6
[2021-04-20] MEDS ORDERED: levETIRAcetam 500 MG TAB PO SCH (21:00)
[2021-04-20] MEDS ORDERED: levETIRAcetam 500 mg/5 ml Oral Solution PER TUBE SCH (21:00)
[2021-04-20 21:35] VITALS: BP 154/78
[2021-04-21] MEDS ORDERED: Cefdinir 300 MG CAP PO SCH (09:00)
== END 2021-04-20 21:40 | disposition hospice, inpatient (51) | DRG 3 ==
LOC: ERS 13:14 → SDC 16:36 → CCU 18:49 → T4-B 04-18 15:12
PROVIDERS: ADMIT Specialist; ATTEND Specialist
PROC: 0W3Q8ZZ Control Bleeding in Respiratory Tract, Via Natural or Artificial Opening Endoscopic (ICD-10-PCS; 2021-03-30)
PROC: 5A1955Z Respiratory Ventilation, Greater than 96 Consecutive Hours (ICD-10-PCS; 2021-03-30)
PROC: 03L Upper Arteries, Occlusion (ICD-10-PCS; 2021-03-30)
PROC: 03LM3DZ Occlusion of Right External Carotid Artery with Intraluminal Device, Percutaneous Approach (ICD-10-PCS; 2021-03-30)
PROC: 0BH17EZ Insertion of Endotracheal Airway into Trachea, Via Natural or Artificial Opening (ICD-10-PCS; 2021-03-30)
PROC: 0CBR0ZX Excision of Epiglottis, Open Approach, Diagnostic (ICD-10-PCS; 2021-03-30)
PROC: 30233K1 Transfusion of Nonautologous Frozen Plasma into Peripheral Vein, Percutaneous Approach (ICD-10-PCS; 2021-03-30)
PROC: 30233N1 Transfusion of Nonautologous Red Blood Cells into Peripheral Vein, Percutaneous Approach (ICD-10-PCS; 2021-03-30)
PROC: 0CJS8ZZ Inspection of Larynx, Via Natural or Artificial Opening Endoscopic (ICD-10-PCS; 2021-03-30)
PROC: B31C1ZZ Fluoroscopy of Bilateral External Carotid Arteries using Low Osmolar Contrast (ICD-10-PCS; 2021-03-30)
PROC: 0B110F4 Bypass Trachea to Cutaneous with Tracheostomy Device, Open Approach (ICD-10-PCS; principal; 2021-04-03)
PROC: 0BJ08ZZ Inspection of Tracheobronchial Tree, Via Natural or Artificial Opening Endoscopic (ICD-10-PCS; 2021-04-03)
PROC: 0DH63UZ Insertion of Feeding Device into Stomach, Percutaneous Approach (ICD-10-PCS; 2021-04-05)
PROC: 0BJ08ZZ Inspection of Tracheobronchial Tree, Via Natural or Artificial Opening Endoscopic (ICD-10-PCS; 2021-04-10)
PROC: 0B9M8ZZ Drainage of Bilateral Lungs, Via Natural or Artificial Opening Endoscopic (ICD-10-PCS; 2021-04-10)
PROC: 0B918ZZ Drainage of Trachea, Via Natural or Artificial Opening Endoscopic (ICD-10-PCS; 2021-04-10)
PROC: 02HV33Z Insertion of Infusion Device into Superior Vena Cava, Percutaneous Approach (ICD-10-PCS; 2021-04-11)
PROC: B548ZZA Ultrasonography of Superior Vena Cava, Guidance (ICD-10-PCS; 2021-04-11)
DX: C32.1 Malignant neoplasm of supraglottis (principal); J69.0 Pneumonitis due to inhalation of food and vomit; J96.01 Acute respiratory failure with hypoxia; D62 Acute posthemorrhagic anemia; J95.61 Intraoperative hemorrhage and hematoma of a respiratory system organ or structure complicating a respiratory system procedure; G93.40 Encephalopathy, unspecified; R78.81 Bacteremia; Z16.24 Resistance to multiple antibiotics; E44.0 Moderate protein-calorie malnutrition; I69.351 Hemiplegia and hemiparesis following cerebral infarction affecting right dominant side; Z20.822 Contact with and (suspected) exposure to COVID-19; Z66 Do not resuscitate; Z51.5 Encounter for palliative care; E78.5 Hyperlipidemia, unspecified; I10 Essential (primary) hypertension; G40.909 Epilepsy, unspecified, not intractable, without status epilepticus; R13.12 Dysphagia, oropharyngeal phase; E78.00 Pure hypercholesterolemia, unspecified; J44.9 Chronic obstructive pulmonary disease, unspecified; E66.9 Obesity, unspecified; D69.59 Other secondary thrombocytopenia; E11.9 Type 2 diabetes mellitus without complications; Y84.8 Other medical procedures as the cause of abnormal reaction of the patient, or of later complication, without mention of misadventure at the time of the procedure; E83.42 Hypomagnesemia; E80.6 Other disorders of bilirubin metabolism; E87.6 Hypokalemia; E83.39 Other disorders of phosphorus metabolism; E53.8 Deficiency of other specified B group vitamins; R94.5 Abnormal results of liver function studies; B95.7 Other staphylococcus as the cause of diseases classified elsewhere; R45.1 Restlessness and agitation; Z78.1 Physical restraint status; I69.320 Aphasia following cerebral infarction; Z68.30 Body mass index [BMI] 30.0-30.9, adult; Z91.14 Patient's other noncompliance with medication regimen; Z79.899 Other long term (current) drug therapy; Z79.82 Long term (current) use of aspirin; Z79.52 Long term (current) use of systemic steroids; Z87.891 Personal history of nicotine dependence
CPT/HCPCS: 31624; 36217; 36415; 36416; 36430; 36569; 36600; 37244; 70491; 71045; 76942; 80048; 80053; 80202; 82140; 82607; 82746; 82805; 83036; 83690; 83735; 83880; 84100; 84484; 85025; 85610; 85730; 86850; 86900; 86901; 87040; 87070; 87077; 87149; 87186; 87205; 88184; 88305; 88341; 88342; 93306; 94002; 94003; 94640; 95712; 95819; 95957; 96374; C1751; C9113; J0171; J0692; J0696; J1100; J1630; J1644; J1815; J1953; J2001; J2060; J2250; J2270; J2405; J2704; J2765; J2920; J2930; J3010; J3370; J3475; J3480; J3490; J7042; J7050; J7512; J7620; J7626; P9016; P9045; P9047; P9059; U0002; U0005